=== PATIENT | female | born 1935 | race Caucasian/White ===

== ENCOUNTER 2016-07-15 23:18 | Emergency (ER) | payer MEDICARE | END 2016-07-16 01:30 | disposition home or self-care (01) | LOC: ER 23:18 | DX: T82.898A Other specified complication of vascular prosthetic devices, implants and grafts, initial encounter (principal) | CPT/HCPCS: 71010 ==

== ENCOUNTER 2016-07-19 15:50 | Emergency (ER) | payer MEDICARE ==
[2016-07-19] MEDS ORDERED: EPINEPHrine 1 MG/10 ML SYR IV ONE (18:53)
[2016-07-19] MEDS ORDERED: SOD BICARB 8.4% SYR 50 ML ONE (18:53)
[2016-07-19] MEDS ORDERED: CALCIUM CHLORIDE 100 MG/ML SYR ONE (18:54)
[2016-07-19] MEDS ORDERED: SODIUM CHLORIDE 0.9% 2,000 ML ONE (18:58)
== END 2016-07-19 18:49 | disposition expired ==
LOC: ER 15:50
DX: I46.9 Cardiac arrest, cause unspecified (principal)
CPT/HCPCS: 92950